=== PATIENT | male | born 1980 | race Caucasian/White ===

== ENCOUNTER 2021-08-15 21:24 | Emergency (ER) | payer BC ==
[~2021-08-15] VITALS: Ht 170.2 cm; Wt 97.5 kg
[2021-08-15 21:32] VITALS: BP_SYST 155
--- NOTE | 2021-08-15 21:39 | NUR ---
Patient triaged and placed in waiting room. VSS and patient appears in no acute distress at this time. Accompanied by self, awaiting available bed, and MD notified of need for MSE.
--- NOTE | 2021-08-15 22:26 | NUR ---
SEEN BY MD HERNANDEZ IN TRIAGE ROOM FOR EVALUATION.
[2021-08-15] MEDS ORDERED: cefTRIAXone 1 GM in LIDOCAINE 1%, 20 ML MDV 2.1 ML IM ONE (22:45)
[2021-08-15] MEDS ORDERED: KETOROLAC TROMETHAMINE 60 MG/2 ML VIAL IM ONE (22:45)
[2021-08-15] MEDS ORDERED: PHEN-801 PO (22:48)
[2021-08-15] MEDS ORDERED: CEPH-548 PO (22:48)
--- NOTE | 2021-08-15 23:15 | NUR ---
Patient to ER bed 7 to gown for evaluation. Side rails up.
--- NOTE | 2021-08-15 23:19 | NUR ---
PT BIB FAMILY TO ED C/O BILAT FLANK PAIN X 2 DAYS. REPORTS URINARY FREQUENCY SINCE TUESDAY VSS NO S/S OF ACUTE DISTRESS RESTING ON GURNEY RAILS UP
[2021-08-15 23:32] VITALS: BP_SYST 155
--- NOTE | 2021-08-15 23:32 | NUR ---
Patient given written and verbal discharge instructions and verbalizes understanding. ER MD discussed with patient the results and treatment provided. Patient in stable condition. ID arm band removed. Rx of Cephalexin and Pyridium given. Patient educated on pain management and to follow up with PMD. Pain Scale 0/10 Opportunity for questions provided and answered. Medication side effect fact sheet provided.
== END 2021-08-15 23:32 | disposition home or self-care (01) ==
LOC: SED 21:24
DX: N39.0 Urinary tract infection, site not specified (principal); Z79.899 Other long term (current) drug therapy
CPT/HCPCS: 96372; 99284; J0696; J1885; J2001